=== PATIENT | female | born 2000 | race Hispanic/Latino ===

== ENCOUNTER 2023-09-27 19:55 | Emergency (ER) | payer SELFPAY ==
[2023-09-27 19:58] VITALS: BP 102/62
--- NOTE | 2023-09-27 20:44 | ED.GENMED ---
History of Present Illness
General
Chief Complaint: Musculo-Skeletal Complaint
Source: patient and cardiothoracic physiotherapist
Time Seen by Provider: 09/27/23 20:31
Travel History
Have you had any contact with someone who has COVID-19?: No
Do you have any symptoms of coronavirus? Fever > 100 degrees, chills, cough, shortness of breath, sore throat, loss of taste or smell, muscle aches, or headache?: No
History of Present Illness
History of Present Illness:
Russian language line, Олег, used for interpretation
23-year-old female with no significant past medical history presenting emergency department for evaluation of right-sided neck pain x 24 hours, unrelieved with massage and 2 doses of Aleve, difficulty with range of motion of her neck stating that
the pain radiates from the right side of her neck down through the waist on the right side. She denies any fevers or traumatic injuries, no focal weakness or numbness or any other concerns. Denies any history of similar.
Past History
Past History
ED Past Medical History: GERD and Psychiatric (Anxiety/depression)
ED Past Surgical History: None
Social History
Tobacco: Non-smoker
Alcohol: Occasional
Drug: None
Personal: Single
Living: with family
Employment: Employed
Family History
Family History: Other (Noncontributory)
Review of Systems
Review of Systems
All Other Systems: ROS reviewed and negative except as documented in HPI and ROS
Phy Exam
Physical Exam
Physical Exam:
GENERAL: Alert , in no apparent distress
EYE: conjunctiva clear
Head: Normocephalic atraumatic
NECK: Supple, reproducible tenderness within the right paracervical and trapezius musculature extending down into the rhomboids and parathoracic region, limited range of motion especially with rightward lateral rotation and rightward bend
ENT: mmm.
LUNGS: no acute respiratory distress
NEUROLOGICAL: Alert and oriented
SKIN: Warm and dry, skin intact.
MUSCULOSKELETAL: well perfused.
PSYCH: Normal and appropriate interaction.
Scores
Heart Failure Risk
Heart Failure Risk Score: Not Applicable
Heart Score for Chest Pain Patients
STEMI patient?: Not applicable
Withdrawal Assessment of Alcohol
Withdrawal Assessment Completed?: Not applicable
Course
Orders/Labs/Results
Orders:
Orders
09/27/23 20:42
Cyclobenzaprine HCl [Flexeril] 5 mg PO NOW STA
Ibuprofen [Motrin] 600 mg PO NOW STA
Lidocaine [Lidocaine 4% Patch] 1 patch TOPICAL NOW STA
CR Cervical Spine 4 Or 5 Vw Urgent
Comment:
Reason For Exam: right sided neck pain
Vital Signs
Initial and Last Documented VS:
Initial Vital Signs
Temp Pulse Resp BP Pulse Ox
98.4 F 73 14 102/62 100
09/27/23 19:58 09/27/23 19:58 09/27/23 19:58 09/27/23 19:58 09/27/23 19:58
Last Documented Vital Signs
Temp Pulse Resp BP Pulse Ox
98.4 F 73 14 102/62 100
09/27/23 19:58 09/27/23 19:58 09/27/23 19:58 09/27/23 19:58 09/27/23 19:58
MDM/Problems Addressed
Differential Diagnosis Includes:
Spasmodic torticollis, given no trauma I have less concern for a fracture, no concern for infectious etiology
MDM/Problems Addressed:
23-year-old female presenting the emergency department for evaluation of right-sided neck pain x 24 hours. Exam seems to be most consistent with a spasmodic torticollis. Treat with meds here for symptomatic relief as well as obtain an x-ray.
Anticipate discharge home and outpatient management as needed.
*Radiology
Radiology exam reviewed: preliminary read by ED provider (No acute findings on C-spine x-ray)
*Pulse Oximetry
Patient hypoxic: no
*Critical Care Note
Total Time (30-74mins, 75-104mins- exclusive of procedures): Not Applicable
Comment
Comment:
Patient stable for discharge home and outpatient management. Return precautions but otherwise stable for discharge home.
ED Attending Note
-
Portions of this chart may have been created with voice recognition software.� Occasional wrong word or��sound alike� substitutions may have occurred due to the inherent limitations of voice recognition software.
Discharge Plan
Departure
Patient Disposition: Home (Routine Discharge)
Date of Disposition: 09/27/23
Time of Disposition: 21:38
Patient with high blood pressure during this ER visit?: No
Discharge Problem:
Torticollis
Instructions: Torticollis (DC)
Prescriptions:
New
cyclobenzaprine 5 mg tablet
5 mg PO TID PRN (Reason: muscle spasm) Qty: 10 0RF
No Action
hydrocodone-acetaminophen 1 TABLET tablet
1 tab PO Q4HPRN PRN (Reason: pain) Qty: 10 0RF
ibuprofen 600 MG tablet
600 mg PO Q6HPRN PRN (Reason: pain) Qty: 20 0RF
ondansetron 4 MG tablet,disintegrating
4 mg PO TIDPRN PRN (Reason: nausea/vomiting) Qty: 10 0RF
sulfamethoxazole-trimethoprim 1 TABLET tablet
1 tab PO BID Qty: 10 0RF
sucralfate [Carafate] 100 mg/mL suspension
10 ml PO BID 5 Days Qty: 100 0RF
Referrals:
[facility] [Outside]
NONE,* [Family Provider] -
Stand Alone Forms: Return to Work
Interventions
Interventions:
*Risk Screen - Suicide Last Done: 09/27/23 19:58
*General Assessment Last Done: 09/27/23 19:58
*Neglect/Abuse Screening Last Done: 09/27/23 19:58
ED- Fall Risk Assessment Last Done: 09/27/23 21:52
*ED COVID-19 Vaccine History Last Done: 09/27/23 19:58
*Nursing Disposition Last Done: 09/27/23 21:52
ED-Musculoskeletal Assessment Last Done: 09/27/23 21:14
Discharge Date and Time
Discharge Date/Time: 09/27/23 21:57
Print Language: ANGUILLAN
[2023-09-27] MEDS: LIDOCAINE 4% PATCH 1 PATCH TOPICAL (21:04)
[2023-09-27] MEDS: FLEXERIL 5 MG PO (21:04)
[2023-09-27] MEDS: MOTRIN 600 MG PO (21:04)
== END 2023-09-27 21:57 | disposition home or self-care (01) ==
LOC: EMR 19:55
PROVIDERS: EMERGENCY PHYSICIAN Emergency Medicine
DX: M43.6 Torticollis (principal)
CPT/HCPCS: 99283; 72050

== ENCOUNTER 2024-04-13 12:38 | Emergency (ER) | payer SELFPAY ==
[2024-04-13 12:39] VITALS: BP 106/72
[2024-04-13] MEDS: OMNIPAQUE 50 ML PO (13:55)
[2024-04-13] MEDS: TORADOL 15 MG IV (13:56)
[2024-04-13] MEDS: NSS 1000 IV (13:56)
[2024-04-13] MEDS: ZOFRAN 4 MG IV (13:56)
[2024-04-13 14:00] VITALS: BP 102/59
[2024-04-13 14:07] LABS: % Basophils 0.4 % (0-2); % Eosinophils 0.5 % (0-6); % Immature Granulocytes 0.4 % (0-0.5); % Lymphocytes 7.1 % (20.5-51.1); % Monocytes 3.4 % (1.7-9.3); % Neutrophils 88.2 % (42.2-75.2); Absolute Basophils 0.1 10^3/uL (0-0.2); Absolute Eosinophils 0.1 10^3/uL (0-0.7); Absolute Immature Granulocytes 0.1 10^3/uL (0-0.05); Absolute Lymphocytes 1.1 10^3/uL (1.2-3.4); Absolute Monocytes 0.5 10^3/uL (0.1-0.6); Absolute Neutrophils 13.9 10^3/uL (1.4-6.5); Hematocrit 41.3 % (37.0-47.0); Hemoglobin 14.3 g/dL (12.0-16.0); Mean Corp Hgb Conc. 34.6 g/dL (33.0-37.0); Mean Corpuscular Volume 86.8 fL (81.0-99.0); Mean Platelet Volume 9.8 fL (7.4-10.4); Nucleated Red Blood Cells % 0 %; Platelet Count 243 10^3/uL (130-400); Red Blood Cell Count 4.76 10^6/uL (4.20-5.40); Red Cell Dist. Width 12.2 % (11.5-14.5); White Blood Cell Count 15.8 10^3/uL (4.8-10.8)
[2024-04-13 14:11] LABS: Urine Albumin 2+ (Neg - Trace); Urine Bilirubin 1+ (Negative); Urine Character Bloody (Clear); Urine Color Red; Urine Glucose Negative (Negative); Urine Ketone Negative (Negative); Urine Leukocyte 1+ (Negative); Urine Nitrite Positive (Negative); Urine Occult Blood 4+ (Negative); Urine Specific Gravity 1.025 (<1.030); Urine Urobilinogen 1+ (Neg - 1+)
[2024-04-13 14:19] LABS: HCG, Urine Qualitative Screen Negative
[2024-04-13 14:22] LABS: ALT (SGPT) 27 U/L (0-35); AST (SGOT) 31 U/L (14-36); Albumin 4.8 g/dl (3.5-5.0); Alkaline Phosphatase 54 U/L (38-126); Blood Urea Nitrogen 21 mg/dl (7-17); Calcium 9.7 mg/dl (8.4-10.2); Carbon Dioxide 27 mmol/L (22-30); Chloride 104 mmol/L (98-107); Glucose 84 mg/dl (70-99); Lipase 95 U/L (23-300); Potassium 4.1 mmol/L (3.5-5.1); Sodium 142 mmol/L (135-145); Total Bilirubin 0.7 mg/dl (0.2-1.3); Total Protein 7.5 g/dl (6.3-8.2); eGFR > 60.00
[2024-04-13 14:30] LABS: Urine Bacteria Few (Negative); Urine Red Blood Cell >100 /HPF (0-2)
--- NOTE | 2024-04-13 14:31 | ED.GENMED ---
History of Present Illness
<Hannah Diamond DO - Last Filed: 04/13/24 14:57>
General
Chief Complaint: Female Hat And Cap [employer]er/Gu symptoms
Time Seen by Provider: 04/13/24 13:01
History of Present Illness
History of Present Illness:
23-year-old female without significant past medical history presenting to the emergency department for lower abdominal pain with nausea, vomiting, diarrhea. Patient reports that she has had intermittent abdominal pain in the past week. This
morning symptoms worsen, pain is mostly right-sided with associated nausea and vomiting and diarrhea. Denies eating any food last evening that may have triggered her symptoms. Reports last menstrual period was at the beginning of the month after
which time she did take 'the morning-after pill ', and believes that she is going to have another menstrual period soon. Denies any abnormal vaginal discharge. Denies dysuria or urinary complaints. Denies any history of abdominal surgeries.
Denies chest pain or difficulty breathing. Denies fever, reports chills. Denies additional acute medical complaints.
Patient is Setswana-speaking with interpretation by screwhead polisher device.
Past History
<DO Sherly Cooley Last Filed: 04/13/24 14:57>
Past History
ED Past Medical History: GERD and Psychiatric (Anxiety/depression)
ED Past Surgical History: None
Social History
Tobacco: Non-smoker
Alcohol: Occasional
Drug: None
Personal: Single
Living: with family
Employment: Employed
Family History
Family History: Other (Noncontributory)
Phy Exam
<DO Sherly Cooley Last Filed: 04/13/24 14:57>
Physical Exam
Physical Exam:
General: Well-appearing, no clinical signs of dehydration, nontoxic and in no acute distress
HEENT: protecting airway
Neck: appears supple
CV: Normal heart rate, regular rhythm
Resp: No accessory muscle use, no increased work of breathing, lungs clear to auscultation bilaterally
Abd: Soft and non-distended, reproducible tenderness to right lower quadrant and suprapubic abdomen, no rebound or guarding
Extremities: No deformities, no swelling, no erythema, pulses and sensation intact
Neuro: alert, no focal neurologic deficit
: deferred
Rectal: deferred
Psych: Normal affect
Skin: Intact
Course
<Hannah Diamond, DO - Last Filed: 04/13/24 14:57>
Orders/Labs/Results
Orders:
Orders
04/13/24 13:48
0.9% Sodium Chloride 1000 ml [Nss] 1,000 ml IV BOLUS
Iohexol [Omnipaque] See Protocol PO NOW STA
Ketorolac [Toradol] 15 mg IV NOW STA
Ondansetron Injectable [Zofran] 4 mg IV NOW STA
04/13/24 13:49
CT Abd/pel W Iv And Oral Contr Urgent
Comment:
Reason For Exam: RLQ pain, N/V, chills, r/o appe
Test Result ONCE
04/13/24 13:57
Complete Blood Count/With Diff Urgent
Comprehensive Metabolic Panel Urgent
HCG, Urine Qualitative Screen Urgent
Date Specimen was Collected: 04/13/24
Time Specimen was Collected: 13:51
Lipase Urgent
Urinalysis Reflex To Culture Urgent
Date Specimen was Collected: 04/13/24
Time Specimen was Collected: 13:51
Urine Microscopic Reflex Cult Urgent
Urine Culture Urgent
ARNALDO Source: U
Specimen Description:
Date Specimen was Collected: 04/13/24
Time Specimen was Collected: 13:51
04/13/24 18:15
Ciprofloxacin HCl [Cipro] 500 mg PO ONCE ONE
Abnormal Lab Results
04/13/24
13:57
WBC 15.8 H 10^3/uL
(4.8-10.8)
Abs Immat Gran (auto) 0.1 H 10^3/uL
(0-0.05)
Absolute Neuts (auto) 13.9 H 10^3/uL
(1.4-6.5)
Absolute Lymphs (auto) 1.1 L 10^3/uL
(1.2-3.4)
Neutrophils % 88.2 H %
(42.2-75.2)
Lymphocytes % 7.1 L %
(20.5-51.1)
BUN 21 H mg/dl
(7-17)
Ur Occult Blood Reflex 4+ A
(Negative)
Urine Nitrite (Reflex) Positive A
(Negative)
Urine Bilirubin 1+ A
(Negative)
Leukocyte Esterase Rfl 1+ A
(Negative)
Urine RBC >100 A /HPF
(0-2)
Urine Bacteria (Reflex) Few A
(Negative)
Urine Albumin (Reflex) 2+ A
(Neg - Trace)
04/13/24 13:57
04/13/24 13:57
Vital Signs
Initial and Last Documented VS:
Initial Vital Signs
Temp Pulse Resp BP Pulse Ox
97.8 F 72 18 106/72 99
04/13/24 12:39 04/13/24 12:39 04/13/24 12:39 04/13/24 12:39 04/13/24 12:39
Last Documented Vital Signs
Temp Pulse Resp BP Pulse Ox
97.8 F 72 18 103/59 99
04/13/24 12:39 04/13/24 12:39 04/13/24 12:39 04/13/24 17:00 04/13/24 17:15
<Gab Hargrove, DO - Last Filed: 04/13/24 18:21>
Orders/Labs/Results
Orders:
Orders
04/13/24 13:48
0.9% Sodium Chloride 1000 ml [Nss] 1,000 ml IV BOLUS
Iohexol [Omnipaque] See Protocol PO NOW STA
Ketorolac [Toradol] 15 mg IV NOW STA
Ondansetron Injectable [Zofran] 4 mg IV NOW STA
04/13/24 13:49
CT Abd/pel W Iv And Oral Contr Urgent
Comment:
Reason For Exam: RLQ pain, N/V, chills, r/o appe
Test Result ONCE
04/13/24 13:57
Complete Blood Count/With Diff Urgent
Comprehensive Metabolic Panel Urgent
HCG, Urine Qualitative Screen Urgent
Date Specimen was Collected: 04/13/24
Time Specimen was Collected: 13:51
Lipase Urgent
Urinalysis Reflex To Culture Urgent
Date Specimen was Collected: 04/13/24
Time Specimen was Collected: 13:51
Urine Microscopic Reflex Cult Urgent
Urine Culture Urgent
ARNALDO Source: U
Specimen Description:
Date Specimen was Collected: 04/13/24
Time Specimen was Collected: 13:51
04/13/24 18:15
Ciprofloxacin HCl [Cipro] 500 mg PO ONCE ONE
Abnormal Lab Results
04/13/24
13:57
WBC 15.8 H 10^3/uL
(4.8-10.8)
Abs Immat Gran (auto) 0.1 H 10^3/uL
(0-0.05)
Absolute Neuts (auto) 13.9 H 10^3/uL
(1.4-6.5)
Absolute Lymphs (auto) 1.1 L 10^3/uL
(1.2-3.4)
Neutrophils % 88.2 H %
(42.2-75.2)
Lymphocytes % 7.1 L %
(20.5-51.1)
BUN 21 H mg/dl
(7-17)
Ur Occult Blood Reflex 4+ A
(Negative)
Urine Nitrite (Reflex) Positive A
(Negative)
Urine Bilirubin 1+ A
(Negative)
Leukocyte Esterase Rfl 1+ A
(Negative)
Urine RBC >100 A /HPF
(0-2)
Urine Bacteria (Reflex) Few A
(Negative)
Urine Albumin (Reflex) 2+ A
(Neg - Trace)
04/13/24 13:57
04/13/24 13:57
Vital Signs
Initial and Last Documented VS:
Initial Vital Signs
Temp Pulse Resp BP Pulse Ox
97.8 F 72 18 106/72 99
04/13/24 12:39 04/13/24 12:39 04/13/24 12:39 04/13/24 12:39 04/13/24 12:39
Last Documented Vital Signs
Temp Pulse Resp BP Pulse Ox
97.8 F 72 18 103/59 99
04/13/24 12:39 04/13/24 12:39 04/13/24 12:39 04/13/24 17:00 04/13/24 17:15
<Hannah Diamond, DO - Last Filed: 04/13/24 14:57>
MDM/Problems Addressed
MDM/Problems Addressed:
23-year-old female without significant past medical history presenting for abdominal pain with nausea, vomiting, diarrhea. Vital signs on arrival are normal.
On exam patient is nontoxic, no acute distress. However, on abdominal exam, focal tenderness to the right lower quadrant and suprapubic abdomen. Differential considerations include urinary tract infection versus pyelonephritis versus appendicitis
versus gastroenteritis versus ectopic . Given tenderness to the right lower quadrant, will plan for laboratory analysis, urinalysis, urine . Patient with low BMI, will plan for CT abdomen pelvis with IV contrast and oral
contrast. Toradol, fluids, Zofran administered for patient's symptoms
14:40 - Urine negative for , however does show a infection, so cystitis versus pyelonephritis continues to be a diagnostic consideration. Labs show leukocytosis, again consistent with underlying infection. Pending CT abdomen and pelvis.
<Hannah Diamond DO - Last Filed: 04/13/24 14:57>
*Critical Care Note
Total Time (30-74mins, 75-104mins- exclusive of procedures): Not Applicable
<Gab Hargrove, DO - Last Filed: 04/13/24 18:21>
Update Note
Update Note:
6:15 PM care of patient was transitioned pending CT scan. CT shows no acute abnormality. On my exam, patient is extremely well-appearing nontoxic. However, she does have back pain, evidence of UTI and leukocytosis. Will treat as likely
pyelonephritis. Will start ciprofloxacin. Patient comfortable with plan
ED Attending Note
<Hannah Diamond DO - Last Filed: 04/13/24 14:57>
-
Portions of this chart may have been created with voice recognition software.� Occasional wrong word or��sound alike� substitutions may have occurred due to the inherent limitations of voice recognition software.
Discharge Plan
Departure
Patient Disposition: Home (Routine Discharge)
Date of Disposition: 04/13/24
Time of Disposition: 18:17
Patient with high blood pressure during this ER visit?: No
Discharge Problem:
Pyelonephritis
Instructions: Urinary Tract Infection, Adult ED
Prescriptions:
New
ciprofloxacin HCl 500 mg Tablet
500 mg PO BID Qty: 14 0RF
No Action
hydrocodone-acetaminophen 1 TABLET tablet
1 tab PO Q4HPRN PRN (Reason: pain) Qty: 10 0RF
ibuprofen 600 MG tablet
600 mg PO Q6HPRN PRN (Reason: pain) Qty: 20 0RF
ondansetron 4 MG tablet,disintegrating
4 mg PO TIDPRN PRN (Reason: nausea/vomiting) Qty: 10 0RF
sulfamethoxazole-trimethoprim 1 TABLET tablet
1 tab PO BID Qty: 10 0RF
sucralfate [Carafate] 100 mg/mL suspension
10 ml PO BID 5 Days Qty: 100 0RF
cyclobenzaprine 5 mg tablet
5 mg PO TID PRN (Reason: muscle spasm) Qty: 10 0RF
Referrals:
NONE,* [Family Provider] -
Activity Restrictions/Additional Instructions:
Please return for any worsening symptoms.
You may return at any time if you have further concerns.
Please follow up with your doctor at the first available appointment, preferably this week.
Thank you for choosing [facility].
Interventions
Interventions:
*Risk Screen - Suicide Last Done: 04/13/24 12:39
*General Assessment Last Done: 04/13/24 13:13
*Neglect/Abuse Screening Last Done: 04/13/24 12:39
ED- Fall Risk Assessment Last Done: 04/13/24 13:13
*ED COVID-19 Vaccine History Last Done: 04/13/24 13:13
ED-Female Genitourinary Assessment Last Done: 04/13/24 13:13
Discharge Date and Time
Print Language: [place] LU[place]
[2024-04-13 15:00] VITALS: BP 110/69
[2024-04-13 16:11] VITALS: BP 114/95
[2024-04-13 17:00] VITALS: BP 103/59
[2024-04-13] MEDS: CIPRO 500 MG PO (18:40)
== END 2024-04-13 18:51 | disposition home or self-care (01) ==
LOC: EMR 12:38
PROVIDERS: EMERGENCY PHYSICIAN Student in an Organized Health Care Education/Training Program
DX: N12 Tubulo-interstitial nephritis, not specified as acute or chronic (principal); K21.9 Gastro-esophageal reflux disease without esophagitis
CPT/HCPCS: 96374; 96375; 96361; 99285; 74177; 80053; 81003; 81015; 81025; 83690; 85025; 87086; Q9967